=== PATIENT | female | born 1975 | race Caucasian/White ===

== ENCOUNTER → 2017-03-07 | Outpatient (CLI) | payer MEDICAID ==
--- NOTE | 2017-03-11 10:48 | MM ---
Reason for exam: screening (asymptomatic). Last mammogram was performed 1 year and 7 months ago. Physical Findings: A clinical breast exam by your physician is recommended on an annual basis and results should be correlated with mammographic findings. MG 3D Screening Mammo W/Cad Bilateral CC and MLO view(s) were taken. Prior study comparison: August 19, 2015, bilateral MG screening mammo w CAD. October 18, 2009, bilateral digital screening mammogram. There are scattered fibroglandular densities. There is no discrete abnormality. ASSESSMENT: Negative, BI-RAD 1 RECOMMENDATION: Routine screening mammogram of both breasts in 1 year.
== END ==
LOC: RADMAMWWP 07:34
PROVIDERS: ATTEND Family Medicine
DX: Z12.31 Encounter for screening mammogram for malignant neoplasm of breast (principal)
CPT/HCPCS: 77063; G0202

== ENCOUNTER → 2018-03-24 | Outpatient (CLI) | payer MEDICAID ==
--- NOTE | 2018-03-24 10:57 | XR ---
EXAMINATION TYPE: XR finger RT DATE OF EXAM: 03/24/2018 COMPARISON: NONE HISTORY: 42 year-old female right index finger injury, reports joint dislocation after gardening last night TECHNIQUE: 3 views coned down right second digit. FINDINGS: There is swan neck deformity of the right index finger. No acute fracture, subluxation, or dislocatio n seen. IMPRESSION: [place]-neck deformity right index finger could be on a posttraumatic basis. Clinically correlation. No acute fracture or dislocation seen.
== END | disposition home or self-care (01) ==
LOC: RADXRYALE 08:40
PROVIDERS: ATTEND Physician Assistant Medical
DX: M20.031 Swan-neck deformity of right finger(s) (principal)

== ENCOUNTER 2019-08-17 08:55 | Emergency (ER) | payer MEDICAID ==
[2019-08-17 09:11] VITALS: RESP 18
[2019-08-17] MEDS ORDERED: KETOROLAC 30 MG/ML 1 ML VIAL IVP STA (09:23)
[2019-08-17] MEDS ORDERED: SODIUM CHLORIDE 0.9% 1,000 ML IV STA ×2 (09:23)
[2019-08-17] MEDS ORDERED: ONDANSETRON ODT 8 MG TAB.RAPDIS PO STA (09:23)
--- NOTE | 2019-08-17 09:25 | ED ---
Abdominal Pain HPI - General Chief Complaint: Abdominal Pain Stated Complaint: Abd.pain/diarrhea/headache Time Seen by Provider: 08/17/19 09:12 Source: patient, RN notes reviewed, old records reviewed Mode of arrival: ambulatory Limitations: no limitations - History of Present Illness Initial Comments: Patient is a 44-year-old female, she presents emergency department today with 2 days of diarrhea, complaining of nausea and she reports she's been having cramping abdominal pain worse on the right lower quadrant. Patient states that she's had associated fevers but does report chills. Denies a significant past medical history. - Related Data Previous Rx's Medication Instructions Recorded Dicyclomine [Bentyl] 10 mg PO TID #10 capsule 08/17/19 Nitrofurantoin Monohyd/M-Cryst 100 mg PO Q12HR #14 cap 08/17/19 [Macrobid] Ondansetron [Zofran ODT] 4 mg PO Q8HR #15 tab 08/17/19 Allergies Allergy/AdvReac Type Severity Reaction Status Date / Time No Known Allergies Allergy Verified 08/17/19 09:14 Review of Systems ROS Statement: Those systems with pertinent positive or pertinent negative responses have been documented in the HPI. ROS Other: All systems not noted in ROS Statement are negative. Past Medical History Past Medical History: No Reported History History of Any Multi-Drug Resistant Organisms: None Reported Past Surgical History: No Surgical Hx Reported Past Psychological History: No Psychological Hx Reported Smoking Status: Current every day smoker Past Alcohol Use History: Occasional Past Drug Use History: None Reported General Exam - General Exam Comments Initial Comments: 44 year old female. Limitations: no limitations General appearance: alert, in no apparent distress Head exam: Present: atraumatic, normocephalic, normal inspection Eye exam: Present: normal appearance, PERRL, EOMI. Absent: scleral icterus, conjunctival injection, periorbital swelling ENT exam: Present: normal exam, mucous membranes moist Neck exam: Present: normal inspection. Absent: tenderness, meningismus, lymphadenopathy Respiratory exam: Present: normal lung sounds bilaterally. Absent: respiratory distress, wheezes, rales, rhonchi, stridor Cardiovascular Exam: Present: regular rate, normal rhythm, normal heart sounds. Absent: systolic murmur, diastolic murmur, rubs, gallop, clicks GI/Abdominal exam: Present: soft, tenderness (Right lower quadrant), normal bowel sounds. Absent: distended, guarding, rebound, rigid Extremities exam: Present: normal inspection, full ROM, normal capillary refill. Absent: tenderness, pedal edema, joint swelling, calf tenderness Back exam: Present: normal inspection Neurological exam: Present: alert, oriented X3, CN II-XII intact Psychiatric exam: Present: normal affect, normal mood Skin exam: Present: warm, dry, intact, normal color. Absent: rash Course Vital Signs 08/17/19 08/17/19 09:08 09:20 Temperature 97.6 F 97.9 F Pulse Rate 101 H Respiratory 18 Rate Blood Pressure 131/88 O2 Sat by Pulse 98 Oximetry Medical Decision Making - Medical Decision Making Patient is a 44-year-old female presents emergency department today with nausea and diarrhea. Patient has had symptoms for the past 2 days. She went to some abdominal cramping sensation. She has some mild right lower quadrant tenderness. Laboratory was reviewed. White blood cell, 6.3. We will not 13.9. Coag levels are normal. Chemistry panels are relatively unremarkable. Urinalysis is positive for infection with 34 white blood cells. Moderate bacteria is noted and some blood. Discussed putting the Patient on antibiotics for this. Patient was reevaluated and is nontender states she's feeling better after fluids and Toradol. I discussed that she can follow-up with her primary care doctor. Discussed return parameters that the pain persists in one location she has any fevers. - Lab Data Result diagrams: 08/17/19 09:30 08/17/19 09:30 Lab Results 08/17/19 08/17/19 08/17/19 Range/Units 09:30 09:30 09:30 WBC 6.3 (3.8-10.6) k/uL RBC 4.43 (3.80-5.40) m/uL Hgb 13.9 (11.4-16.0) gm/dL Hct 39.2 (34.0-46.0) % MCV 88.3 (80.0-100.0) fL MCH 31.4 (25.0-35.0) pg MCHC 35.5 (31.0-37.0) g/dL RDW 13.1 (11.5-15.5) % Plt Count 238 (150-450) k/uL Neutrophils % 62 % Lymphocytes % 26 % Monocytes % 6 % Eosinophils % 3 % Basophils % 1 % Neutrophils # 3.9 (1.3-7.7) k/uL Lymphocytes # 1.6 (1.0-4.8) k/uL Monocytes # 0.4 (0-1.0) k/uL Eosinophils # 0.2 (0-0.7) k/uL Basophils # 0.1 (0-0.2) k/uL PT 9.6 (9.0-12.0) sec INR 0.9 (<1.2) APTT 24.7 (22.0-30.0) sec Sodium 140 (137-145) mmol/L Potassium 3.9 (3.5-5.1) mmol/L Chloride 111 H (98-107) mmol/L Carbon Dioxide 21 L (22-30) mmol/L Anion Gap 8 mmol/L BUN 10 (7-17) mg/dL Creatinine 0.60 (0.52-1.04) mg/dL Est GFR (CKD-EPI)AfAm >90 (>60 ml/min/1.73 sqM) Est GFR (CKD-EPI)NonAf >90 (>60 ml/min/1.73 sqM) Glucose 104 H (74-99) mg/dL Calcium 8.8 (8.4-10.2) mg/dL Total Bilirubin 0.3 (0.2-1.3) mg/dL AST 20 (14-36) U/L ALT 26 (9-52) U/L Alkaline Phosphatase 73 (38-126) U/L Total Protein 6.7 (6.3-8.2) g/dL Albumin 3.7 (3.5-5.0) g/dL Amylase 49 (30-110) U/L Lipase 105 (23-300) U/L Urine Color Urine Appearance (Clear) Urine pH (5.0-8.0) Ur Specific [place] (1.001-1.035) Urine Protein (Negative) Urine Glucose (UA) (Negative) Urine Ketones (Negative) Urine Blood (Negative) Urine Nitrite (Negative) Urine Bilirubin (Negative) Urine Urobilinogen (<2.0) mg/dL Ur Leukocyte Esterase (Negative) Urine RBC (0-5) /hpf Urine WBC (0-5) /hpf Urine WBC Clumps (None) /hpf Ur Squamous Epith Cells (0-4) /hpf Urine Bacteria (None) /hpf Urine Mucus (None) /hpf 08/17/19 Range/Units 09:30 WBC (3.8-10.6) k/uL RBC (3.80-5.40) m/uL Hgb (11.4-16.0) gm/dL Hct (34.0-46.0) % MCV (80.0-100.0) fL MCH (25.0-35.0) pg MCHC (31.0-37.0) g/dL RDW (11.5-15.5) % Plt Count (150-450) k/uL Neutrophils % % Lymphocytes % % Monocytes % % Eosinophils % % Basophils % % Neutrophils # (1.3-7.7) k/uL Lymphocytes # (1.0-4.8) k/uL Monocytes # (0-1.0) k/uL Eosinophils # (0-0.7) k/uL Basophils # (0-0.2) k/uL PT (9.0-12.0) sec INR (<1.2) APTT (22.0-30.0) sec Sodium (137-145) mmol/L Potassium (3.5-5.1) mmol/L Chloride (98-107) mmol/L Carbon Dioxide (22-30) mmol/L Anion Gap mmol/L BUN (7-17) mg/dL Creatinine (0.52-1.04) mg/dL Est GFR (CKD-EPI)AfAm (>60 ml/min/1.73 sqM) Est GFR (CKD-EPI)NonAf (>60 ml/min/1.73 sqM) Glucose (74-99) mg/dL Calcium (8.4-10.2) mg/dL Total Bilirubin (0.2-1.3) mg/dL AST (14-36) U/L ALT (9-52) U/L Alkaline Phosphatase (38-126) U/L Total Protein (6.3-8.2) g/dL Albumin (3.5-5.0) g/dL Amylase (30-110) U/L Lipase (23-300) U/L Urine Color Yellow Urine Appearance Turbid H (Clear) Urine pH 5.5 (5.0-8.0) Ur Specific [place] 1.030 (1.001-1.035) Urine Protein 1+ H (Negative) Urine Glucose (UA) Negative (Negative) Urine Ketones Negative (Negative) Urine Blood Small H (Negative) Urine Nitrite Negative (Negative) Urine Bilirubin Negative (Negative) Urine Urobilinogen <2.0 (<2.0) mg/dL Ur Leukocyte Esterase Large H (Negative) Urine RBC 7 H (0-5) /hpf Urine WBC 24 H (0-5) /hpf Urine WBC Clumps Few H (None) /hpf Ur Squamous Epith Cells 45 H (0-4) /hpf Urine Bacteria Moderate H (None) /hpf Urine Mucus Moderate H (None) /hpf - Radiology Data Radiology results: report reviewed Normal abdominal x-ray. Disposition Clinical Impression: Diarrhea, UTI (urinary tract infection) Disposition: HOME SELF-CARE Condition: Good Instructions (If sedation given, give patient instructions): Gastroenteritis (ED), Urinary Tract Infection in Women (DC) Additional Instructions: Please use medication as discussed. Please follow up with family doctor if symptoms have not improved over the next two days. Please return to the em ergency room if your symptoms increase or worsen or for any other concerns. Prescriptions: Dicyclomine [Bentyl] 10 mg PO TID #10 capsule Nitrofurantoin Monohyd/M-Cryst [Macrobid] 100 mg PO Q12HR #14 cap Ondansetron [Zofran ODT] 4 mg PO Q8HR #15 tab Is patient prescribed a controlled substance at d/c from ED?: No Referrals: Tung Gillsi DO [Primary Care Provider] - 1-2 days Time of Disposition: 10:37
[2019-08-17] MEDS ORDERED: ONDANSETRON 4 MG/2 ML VIAL IVP STA (09:26)
[2019-08-17 09:44] LABS: Basophils # (A) 0.1 k/uL (0-0.2); Basophils % (A) 1 %; Eosinophils # (A) 0.2 k/uL (0-0.7); Eosinophils % (A) 3 %; HCT 39.2 % (34.0-46.0); HGB 13.9 gm/dL (11.4-16.0); Lymphocytes # (A) 1.6 k/uL (1.0-4.8); Lymphocytes % (A) 26 %; MCH 31.4 pg (25.0-35.0); MCHC 35.5 g/dL (31.0-37.0); MCV 88.3 fL (80.0-100.0); Mean Platelet Volume 7.8; Monocytes # (A) 0.4 k/uL (0-1.0); Monocytes % (A) 6 %; Neutrophils # (A) 3.9 k/uL (1.3-7.7); Neutrophils % (A) 62 %; Platelet Count 238 k/uL (150-450); RBC 4.43 m/uL (3.80-5.40); RDW 13.1 % (11.5-15.5); WBC 6.3 k/uL (3.8-10.6)
[2019-08-17 09:53] LABS: Appearance,Urine Turbid (Clear); Bacteria,Urine Moderate /hpf; Bilirubin,Urine Negative (Negative); Blood,Urine Small (Negative); Color,Urine Yellow; Glucose,Urine (UA) Negative (Negative); Ketones,Urine Negative (Negative); Leukocyte Esterase,Urine Large (Negative); Mucus,Urine Moderate /hpf; Nitrite,Urine Negative (Negative); PH, Urine 5.5 (5.0-8.0); Protein,Urine 1+ (Negative); RBC,Urine 7 /hpf (0-5); Squamous Epithelial Cell,Urine 45 /hpf (0-4); Urobilinogen,Urine <2.0 mg/dL (<2.0); WBC,Urine 24 /hpf (0-5)
[2019-08-17 09:54] LABS: INR 0.9 (<1.2); Partial Thromboplastin Time 24.7 sec (22.0-30.0); Prothrombin Time 9.6 sec (9.0-12.0)
[2019-08-17 09:55] LABS: ALT 26 U/L (9-52); AST 20 U/L (14-36); African American GFR (CKD) >90 (>60 ml/min/1.73 sqM); Albumin 3.7 g/dL (3.5-5.0); Alkaline Phosphatase 73 U/L (38-126); Amylase 49 U/L (30-110); Anion Gap 8 mmol/L; Blood Urea Nitrogen 10 mg/dL (7-17); Calcium 8.8 mg/dL (8.4-10.2); Carbon Dioxide 21 mmol/L (22-30); Chloride 111 mmol/L (98-107); Glucose 104 mg/dL (74-99); Potassium 3.9 mmol/L (3.5-5.1); Sodium 140 mmol/L (137-145); Total Bilirubin 0.3 mg/dL (0.2-1.3); Total Protein 6.7 g/dL (6.3-8.2)
--- NOTE | 2019-08-17 10:02 | XR ---
EXAMINATION TYPE: XR KUB DATE OF EXAM: 08/17/2019 COMPARISON: None HISTORY: Abdomen pain TECHNIQUE: Upright abdomen FINDINGS: Normal bowel gas is present. Psoas margins are normal. No free air is evident. No suspiciou s differential air-fluid levels are present. No mass effect is evident. IMPRESSION: 1. Normal abdomen
[2019-08-17 10:50] VITALS: BP 133/95; PULSE 70; TEMP 98.2
== END 2019-08-17 10:48 | disposition home or self-care (01) ==
LOC: EC 08:55
DX: N39.0 Urinary tract infection, site not specified (principal); R19.7 Diarrhea, unspecified; F17.200 Nicotine dependence, unspecified, uncomplicated; Z53.9 Procedure and treatment not carried out, unspecified reason
CPT/HCPCS: 99284; 96374; 96375; 96361; 36415; 80053; 82150; 83690; 85025; 85610; 85730; 81001; 74018; J1885

== ENCOUNTER → 2019-09-17 | Outpatient (CLI) | payer MEDICAID ==
--- NOTE | 2019-09-17 15:24 | CT ---
EXAMINATION TYPE: CT abdomen pelvis w con DATE OF EXAM: 09/17/2019 COMPARISON: None INDICATION: Generalized abdominal pain and diarrhea DLP: 1952.7 mGycm, Automated exposure control for dose reduction was used. CONTRAST: 100 mL of Isovue 300. Study performed with Oral Contrast TECHNIQUE: Axial images were obtained from above the diaphragm to the pubic rami in the axial plane a t 5 mm thick sections. Reconstructed images are reviewed on the computer in the coronal plane. FINDINGS: Limited CT sections are obtained the lung bases. The lung bases are clear. CT ABDOMEN: Liver: Normal Spleen: Normal Pancreas: Normal Adrenal glands: The adrenal glands are normal. Gallbladder: Normal Kidneys: No masses are evident. No hydronephrosis is present. No cysts are present. Delayed images were obtained through the kidneys, which remain unremarkable. Aorta: Normal Inferior vena cava: Normal. CT PELVIS: Loops of bowel within the abdomen and pelvis are normal. There are loops of bowel which are incom pletely distended or lack oral contrast limiting their evaluation. Appendix: Normal as visualized. Urinary bladder: Normal. Genitourinary structures: Uterus and adnexa are unremarkable. Osseous structures: No suspicious lytic or sclerotic lesions. IMPRESSIONS: 1. No suspicious acute changes to account for patient's symptoms.
== END | disposition home or self-care (01) ==
LOC: RADCTMAIN 07:57
PROVIDERS: ATTEND Family Medicine
DX: R10.30 Lower abdominal pain, unspecified (principal); R19.7 Diarrhea, unspecified; R11.0 Nausea
CPT/HCPCS: 74177; Q9967

== ENCOUNTER → 2020-09-12 | Outpatient (CLI) | payer MEDICAID ==
[2020-09-12 10:09] VITALS: BP 129/85; PULSE 65; RESP 18; TEMP 98.1
--- NOTE | 2020-09-12 10:50 | P.HPOB ---
History of Present Illness H&P Date: 09/12/20 Chief Complaint: The patient is here for her routine gynecologic exam and ma mmogram. This is a 45-year-old with an LMP of approximately 2009. The patient is here to establish with this office. It has been about 3 years since her last pelvic exam. She has been amenorrheic since her endometrial ablation done in approximately 2009. She has occasional night sweats, but otherwise denies any significant hot flashes. She is without gynecologic complaints. Review of Systems The patient's weight has been stable over the last year. She has been trying to lose weight without success. She states she is not a very good uterine and does not exercise regularly. She denies respiratory, cardiac, or G.I. problems. Past Medical History Past Medical History: No Reported History Additional Past Medical History / Comment(s): Overweight. 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 Cryotherapy of cervix age 21. History of Any Multi-Drug Resistant Organisms: None Reported Past Surgical History: Tonsillectomy, Uterine Ablation Additional Past Surgical History / Comment(s): Endometrial ablation ankur roximately 2009. Cryotherapy of cervix age 21. VTP. Past Psychological History: No Psychological Hx Reported Smoking Status: Current every day smoker (Half pack per day) Past Alcohol Use History: Occasional Additional Past Alcohol Use History / Comment(s): She started smoking at approximately age 17. 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 - Past Family History Father Family Medical History: Diabetes Mellitus, Myocardial Infarction ([place]) Mother Family Medical History: Hypertension Medications and Allergies Home Medications Medication Instructions Recorded Confirmed Type No Known Home Medications 09/12/20 09/12/20 History Allergies Allergy/AdvReac Type Severity Reaction Status Date / Time No Known Allergies Allergy Verified 09/12/20 10:06 Exam Vital Signs Temp Pulse Resp BP Pulse Ox 09/12/20 10:07 98.1 F 65 18 129/85 98 Intake and Output 09/11/20 09/12/20 09/12/20 22:59 06:59 14:59 Other: Weight 120.656 kg Height 5 feet 5 inches, weight 266 pounds, BMI 44.3. Pulse 114. This is a well-developed well-nourished heavyset white female who is alert and oriented times 3 in no acute distress. HEENT: Within normal limits. NECK: Supple without mass or thyromegaly. CHEST AND LUNGS: Clear to auscultation. HEART: Mild tachycardia with sinus rhythm. BREASTS: Are without mass or discharge. AXILLARY EXAM: Negative for adenopathy. BACK: Negative for CVA tenderness. ABDOMEN: Soft, nontender, without palpable masses. PELVIC EXAM: Normal external genitalia. Cervix and vagina appear normal. There is no unusual discharge. There is no evidence of prolapse. The uterus is midposition, nongravid size and nontender. There are no palpable adnexal masses or tenderness. Bimanual examination is somewhat limited secondary to her size. RECTAL EXAM: negative for mass or tenderness and is negative for occult blood. EXTREMITIES: Nontender. IMPRESSION: 1. 45-year-old female who is amenorrheic since her endometrial ablation in 2009 whose is status post vasectomy, with normal gynecologic exam. 2. Probable premenopausal female. 3. Overweight. PLAN: 1. Pap smear was performed. 2. Self breast awareness was discussed with the patient. 3. Screening mammogram will be done today. 4. Osteoporosis prevention was discussed. I have stressed the importance of adequate calcium, vitamin D and regular exercise. Recommended amounts of calcium and vitamin D were also discussed. 5. I have recommended that she work on trying to quit smoking. We have discussed many reasons why this is important as well as ways of doing this. 6. We have discussed weight control. I have stressed the importance of good nutrition, adequate fiber, not skipping meals, and regular exercise. 7. She was advised to return in one year for her annual well woman exam.
--- NOTE | 2020-09-13 11:56 | MM ---
Reason for exam: screening (asymptomatic). Last mammogram was performed 3 years and 6 months ago. Physical Findings: A clinical breast exam by your physician is recommended on an annual basis and results should be correlated with mammographic findings. MG 3D Screening Mammo W/Cad Bilateral CC and MLO view(s) were taken. Prior study comparison: March 07, 2017, bilateral MG 3d screening mammo w/cad. August 19, 2015, bilateral MG screening mammo w CAD. There are scattered fibroglandular densities. There is no discrete abnormality. ASSESSMENT: Negative, BI-RAD 1 RECOMMENDATION: Routine screening mammogram of both breasts in 1 year.
== END | disposition home or self-care (01) ==
LOC: WWCWWP 09:54
PROVIDERS: ATTEND Obstetrics & Gynecology
DX: Z12.31 Encounter for screening mammogram for malignant neoplasm of breast (principal)
CPT/HCPCS: 77063; 77067

== ENCOUNTER → 2021-08-27 | Outpatient (CLI) | payer MEDICAID, OTHER | END | disposition home or self-care (01) | LOC: LABWHC1 12:18 | PROVIDERS: ATTEND Emergency Medicine | DX: Z20.822 Contact with and (suspected) exposure to COVID-19 (principal) | CPT/HCPCS: 87635 ==

== ENCOUNTER 2021-10-26 08:06 | Day surgery (SDC) | payer MEDICAID ==
[2021-10-24 15:31] VITALS: BMI 41.5
[~2021-10-26 08:06] MED LIST: LACTATED RINGERS 1,000 ML IV SCH
[2021-10-26 08:42] VITALS: TEMP 97.3
[2021-10-26] MEDS ORDERED: LIDOCAINE 1% (10MG/ML) FOR IV START INTRADERMA ONE (08:56)
[2021-10-26] MEDS ORDERED: LIDOCAINE 1% INJ 10MG/ML (20 ML MDV) ONE (09:23)
[2021-10-26] MEDS ORDERED: PROPOFOL 10 MG/ML 20 ML VIAL IV ONE (09:23)
--- NOTE | 2021-10-26 09:43 | P.PCN ---
Date of Procedure: 10/26/21 Procedure(s) Performed: BRIEF HISTORY: Patient is a 46-year-old pleasant female scheduled for an elective colonoscopy as a part of evaluation of lower abdominal pain and intermittent diarrhea for the last several months duration. PROCEDURE PERFORMED: Colonoscopy with snare polypectomy. PREOPERATIVE DIAGNOSIS: Lower abdominal pain and change in bowel habits of several months duration IV sedation per Anesthesia. PROCEDURE: After informed consent was obtained, the patient, was brought into the endoscopy unit. IV sedation was administered by Anesthesia under continuous monitoring. Digital rectal examination was normal. Initially the Olympus CF-160 flexible video colonoscope was then inserted in the rectum, gradually advanced into the cecum without any difficulty. Careful examination was performed as the scope was gradually being withdrawn. Ileocecal valve and the appendiceal orifice were visualized and appeared normal. Prep was excellent. Mucosa of the cecum, ascending colon, transverse colon, there normal. The descending colon there was a 5 mm and 7 mm polyps removed by snare polypectomy. The sigmoid colon there was a 3 mm and 5 mm polyp removed by snare polypectomy. Rest of the descending colon, sigmoid colon, and rectum appeared normal. Retroflexion was performed in the rectum and small internal hemorrhoids were seen. The patient tolerated the procedure well. IMPRESSION: 5 mm and 7 mm descending colon polyp status post polypectomy 3 mm and 5 mm; sigmoid polyp status post polypectomy Small internal hemorrhoids RECOMMENDATIONS: Findings of this examination were discussed with the patient as well as a family. She was advised to follow with the biopsy results. If the biopsy reveals adenoma she can have a repeat colonoscopy in 5 years.. In the meantime she was advised to continue with dicyclomine as needed and continue with a high-fiber diet.
[2021-10-26 10:08] VITALS: BP 119/78; PULSE 70; RESP 16
[2021-10-26] MEDS ORDERED: IV FLUID CONTINUATION 1,000 ML IV ONE (10:20)
== END 2021-10-26 10:21 | disposition home or self-care (01) ==
LOC: ORWHC2ENDO 08:06
PROVIDERS: ATTEND Internal Medicine Gastroenterology
DX: D12.4 Benign neoplasm of descending colon (principal); K63.5 Polyp of colon; K64.8 Other hemorrhoids; F17.210 Nicotine dependence, cigarettes, uncomplicated; Z79.899 Other long term (current) drug therapy
CPT/HCPCS: 81025; 88305; 45385; J2001; J2704

== ENCOUNTER → 2021-11-13 | Outpatient (CLI) | payer MEDICAID ==
[2021-11-13 09:14] VITALS: BP 121/83; PULSE 85; RESP 18; TEMP 97.9
--- NOTE | 2021-11-13 09:37 | P.HPOB ---
History of Present Illness H&P Date: 11/13/21 Chief Complaint: The patient is here for her routine gynecologic exam and ma mmogram. This is a 46-year-old 012 with an LMP of approximately 2009. The patient has been amenorrheic since her endometrial ablation which was done in approximately 2009. She denies any vaginal bleeding. Her is status post vasectomy. She has had occasional night sweats but denies any significant hot flashes during the day. She is without gynecologic complaints. Review of Systems The patient has lost 2 pounds over the last year. She denies respiratory, cardiac, or G.I. problems. Past Medical History Past Medical History: No Reported History Additional Past Medical History / Comment(s): BOUT'S OF SEVERE DIARRHEA AND ABD. PAIN FOR PAST SEVERAL YEARS. 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 Cryotherapy of the cervix at age 21. History of Any Multi-Drug Resistant Organisms: None Reported Past Surgical History: Tonsillectomy, Uterine Ablation Additional Past Surgical History / Comment(s): Endometrial ablation approximately 2009. Cryotherapy of cervix age 21. VTP. 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 - Past Family History Father Family Medical History: Diabetes Mellitus, Myocardial Infarction ([place]) Mother Family Medical History: Hypertension Medications and Allergies Home Medications Medication Instructions Recorded Confirmed Type Dicyclomine [Bentyl] 20 mg PO QID PRN 11/13/21 11/13/21 History Rosuvastatin [Crestor] 10 mg PO HS 11/13/21 11/13/21 History Allergies Allergy/AdvReac Type Severity Reaction Status Date / Time No Known Allergies Allergy Verified 11/13/21 09:07 Exam Vital Signs Temp Pulse Resp BP Pulse Ox 11/13/21 09:08 97.9 F 85 18 121/83 97 Intake and Output 11/12/21 11/13/21 11/13/21 22:59 06:59 14:59 Other: Weight 119.748 kg Height 5 feet 4-1/2 inches, weight 264 pounds, BMI 44.6. This is a well-developed well-nourished heavyset white female who is alert and oriented times 3 in no acute distress. HEENT: Within normal limits. NECK: Supple without mass or thyromegaly. CHEST AND LUNGS: Clear to auscultation. HEART: Regular rate and rhythm. BREASTS: Are without mass or discharge. AXILLARY EXAM: Negative for adenopathy. BACK: Negative for CVA tenderness. ABDOMEN: Soft, obese, nontender, without palpable masses. PELVIC EXAM: Normal external genitalia. Cervix and vagina appear normal. There is no unusual discharge. There is no evidence of prolapse. The uterus is midposition, nongravid size and nontender. There are no palpable adnexal masses or tenderness. RECTAL EXAM: negative for mass or tenderness and is negative for occult blood. EXTREMITIES: Nontender. IMPRESSION: 1. 46-year-old probable premenopausal female with amenorrhea secondary to endometrial ablation in 2009, with normal gynecologic exam. 2. Overweight. PLAN: 1. Pap smear was deferred since she had a normal one on 09/12/2020. 2. Self breast awareness was discussed with the patient. We have also discussed symptoms associated with inflammatory breast cancer. 3. Screening mammogram will be done today. 4. Osteoporosis prevention was discussed. I have stressed the importance of adequate calcium, vitamin D and regular exercise. Recommended amounts of calcium and vitamin D were also discussed. 5. She has completed her Covid vaccination series and has received a booster. 6. She was advised to return in one year for her annual well woman exam.
== END ==
LOC: WWCWWP 09:00
PROVIDERS: ATTEND Obstetrics & Gynecology
DX: Z12.31 Encounter for screening mammogram for malignant neoplasm of breast (principal); N91.2 Amenorrhea, unspecified; E66.3 Overweight; F17.210 Nicotine dependence, cigarettes, uncomplicated; Z98.890 Other specified postprocedural states; Z68.41 Body mass index [BMI] 40.0-44.9, adult
CPT/HCPCS: 77063; 77067

== ENCOUNTER 2023-12-16 06:10 | Observation (INO) | payer MEDICAID ==
--- NOTE | 2023-12-16 06:37 | ED ---
General Adult HPI - General Stated complaint: Chest pain Time Seen by Provider: 12/16/23 06:36 Source: patient, RN notes reviewed Mode of arrival: ambulatory Limitations: no limitations - History of Present Illness Initial comments: 48-year-old female presents emergency department chief complaint of chest pain. Patient states started yesterday some pain in her back, shoulder region states it is now more anterior she does admit that it hurts with movement but is concerning as she has a significant family cardiac history. Patient states that her brother this year with cardiac issues along with her father at a young age. Patient dates she does have hyperlipidemia no history of hypertension denies any history of diabetes. She denies any leg swelling, leg pain or history of DVT or PE. - Related Data Home Medications Medication Instructions Recorded Confirmed Dicyclomine [Bentyl] 20 mg PO QID PRN 11/13/21 01/15/23 Rosuvastatin [Crestor] 10 mg PO HS 11/13/21 01/15/23 Allergies Allergy/AdvReac Type Severity Reaction Status Date / Time No Known Allergies Allergy Verified 12/16/23 06:45 Review of Systems ROS Statement: Those systems with pertinent positive or pertinent negative responses have been documented in the HPI. ROS Other: All systems not noted in ROS Statement are negative. 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 Cryotherapy of the cervix at age 21. History of Any Multi-Drug Resistant Organisms: None Reported Past Surgical History: Tonsillectomy, Uterine Ablation Additional Past Surgical History / Comment(s): Endometrial ablation approxima tely 2009. Cryotherapy of cervix age 21. VTP. Past Anesthesia/Blood Transfusion Reactions: No Reported Reaction Past Psychological History: No Psychological Hx Reported Smoking Status: Current every day smoker (Half a pack per day) Past Alcohol Use History: Occasional (5 per week) Additional Past Alcohol Use History / Comment(s): She started smoking at approximately age 17.-SMOKES ABOUT 1/2 PPD Past Drug Use History: None Reported - Past Family History Father Family Medical History: Diabetes Mellitus, Myocardial Infarction ([place]) Mother Family Medical History: Hypertension General Exam Limitations: no limitations General appearance: alert, in no apparent distress Head exam: Present: atraumatic, normocephalic, normal inspection Eye exam: Present: normal appearance, PERRL, EOMI. Absent: scleral icterus, conjunctival injection, periorbital swelling ENT exam: Present: normal exam, normal oropharynx, mucous membranes moist Neck exam: Present: normal inspection, full ROM. Absent: tenderness, meningismus, lymphadenopathy Respiratory exam: Present: normal lung sounds bilaterally. Absent: respiratory distress, wheezes, rales, rhonchi, stridor Cardiovascular Exam: Present: regular rate, normal rhythm, normal heart sounds. Absent: systolic murmur, diastolic murmur, rubs, gallop, clicks GI/Abdominal exam: Present: soft, normal bowel sounds. Absent: distended, tenderness, guarding, rebound, rigid Course Vital Signs 12/16/23 12/16/23 06:45 09:28 Temperature 98.3 F Pulse Rate 79 75 Respiratory 17 18 Rate Blood Pressure 154/106 166/110 O2 Sat by Pulse 98 98 Oximetry EKG Findings - EKG Comments: EKG Findings:: EKG performed at 6: 52 sinus rhythm rate of 84 [place] 162 QRS 77 QT/ QTc 381/422 - EKG Results: EKG: interpreted by TERRI Medical Decision Making - Medical Decision Making Was pt. sent in by a medical professional or institution (, PA, COMMUNITY PLACEMENT WORKER, urgent care, hospital, or fpc...) When possible be specific @ -No Did you speak to anyone other than the patient for history (EMS, parent, family, police, friend...)? What history was obtained from this source @ -No Did you review nursing and triage notes (agree or disagree)? Why? @ -I reviewed and agree with nursing and triage notes Were old charts reviewed (outside hosp., previous admission, EMS record, old EKG, old radiological studies, urgent care reports/EKG's, fpc records)? Report findings @ -No old charts were reviewed Differential Diagnosis (chest pain, altered mental status, abdominal pain women, abdominal pain men, vaginal bleeding, weakness, fever, dyspnea, syncope, headache, dizziness, GI bleed, back pain, seizure, CVA, palpatations, mental health, musculoskeletal)? @ -[Differential Chest Pain: Stable Angina, Unstable Angina, STEMI, NSTEMI Aortic Dissection, Pneumothorax, Musculoskeletal, Esophageal Spasm GERD, Cholecystitis, Pancreatitis, Zoster, this is not meant to be an all-inclusive list. EKG interpreted by me (3pts min.). @ -As above X-rays interpreted by me (1pt min.). @ -None done CT interpreted by me (1pt min.). @ -[CT angio chest showing no evidence of PE there are multiple nodules there is abnormal lytic lesion in the rib noted U/S interpreted by me (1pt. min.). @ -None done What testing was considered but not performed or refused? (CT, X-rays, U/S, labs)? Why? @ -[Ordered x-ray of this was not completed prior to requiring CT x-ray was canceled What meds were considered but not given or refused? Why? @ -None Did you discuss the management of the patient with other professionals (professionals i.e. , PA, COMMUNITY PLACEMENT WORKER, lab, RT, psych nurse, social sciences research scientist, clay pigeon loader, teacher, vessel traffic officer, case folder)? Give summary @ -[Yuniel with sound physicians for admission secondary to cardiac risk, cardiac rule out Was smoking cessation discussed for >3mins.? @ -No Was critical care preformed (if so, how long)? @ -No Were there social determinants of health that impacted care today? How? (Homelessness, low income, unemployed, alcoholism, drug addiction, transportation, low edu. Level, literacy, decrease access to med. care, [facility], rehab)? @ -No Was there de-escalation of care discussed even if they declined (Discuss DNR or withdrawal of care, Hospice)? DNR status @ -No What co-morbidities impacted this encounter? (DM, HTN, Smoking, COPD, CAD, Cancer, CVA, ARF, Chemo, Hep., AIDS, mental health diagnosis, sleep apnea, morbid obesity)? @ -[Hyperlipidemia, cardiac family history Was patient admitted / discharged? Hospital course, mention meds given and route, prescriptions, significant lab abnormalities, going to OR and other pertinent info. @ -Admitted patient has significant history of family heart disease, does have risk factors she had a negative troponin, CT of the chest shows multiple nodules and possible lytic lesion Undiagnosed new problem with uncertain prognosis? @ -[Yes Drug Therapy requiring intensive monitoring for toxicity (Heparin, Nitro, Insulin, Cardizem)? @ -[No Were any procedures done? @ -No Diagnosis/symptom? @ -[Chest pain, lung nodules, rib lesion Acute, or Chronic, or Acute on Chronic? @ -Acute Uncomplicated (without systemic symptoms) or Complicated (systemic symptoms)? @ -complicated Side effects of treatment? @ -[No Exacerbation, Progression, or Severe Exacerbation? @ -No Poses a threat to life or bodily function? How? (Chest pain, USA, NM, pneumonia, PE, COPD, DKA, ARF, appy, cholecystitis, CVA, Diverticulitis, Homicidal, S uicidal, threat to staff... and all critical care pts) @ -[Yes possible ACS - Lab Data Result diagrams: 12/16/23 06:52 12/16/23 06:52 Lab Results 12/16/23 12/16/23 12/16/23 Range/Units 06:52 06:52 06:52 WBC 6.6 (3.8-10.6) k/uL RBC 4.35 (3.80-5.40) m/uL Hgb 13.8 (11.4-16.0) gm/dL Hct 39.3 (34.0-46.0) % MCV 90.3 (80.0-100.0) fL MCH 31.6 (25.0-35.0) pg MCHC 35.0 (31.0-37.0) g/dL RDW 13.0 (11.5-15.5) % Plt Count 231 (150-450) k/uL MPV 7.6 Neutrophils % 56 % Lymphocytes % 34 % Monocytes % 5 % Eosinophils % 3 % Basophils % 0 % Neutrophils # 3.7 (1.3-7.7) k/uL Lymphocytes # 2.2 (1.0-4.8) k/uL Monocytes # 0.3 (0-1.0) k/uL Eosinophils # 0.2 (0-0.7) k/uL Basophils # 0.0 (0-0.2) k/uL PT 9.8 L (10.0-12.5) sec INR 0.9 (<1.2) APTT 23.9 (22.0-30.0) sec D-Dimer 0.64 H (<0.60) mg/L FEU Sodium 138 (137-145) mmol/L Potassium 4.9 (3.5-5.1) mmol/L Chloride 112 H (98-107) mmol/L Carbon Dioxide 19 L (22-30) mmol/L Anion Gap 7 mmol/L BUN 16 (7-17) mg/dL Creatinine 0.46 L (0.52-1.04) mg/dL Est GFR (CKD-EPI)AfAm >90 (>60 ml/min/1.73 sqM) Est GFR (CKD-EPI)NonAf >90 (>60 ml/min/1.73 sqM) Glucose 123 H (74-99) mg/dL Calcium 8.7 (8.4-10.2) mg/dL Magnesium 1.8 (1.6-2.3) mg/dL Total Bilirubin 0.8 (0.2-1.3) mg/dL AST 31 (14-36) U/L ALT 21 (4-34) U/L Alkaline Phosphatase 56 (38-126) U/L Troponin I (0.000-0.034) ng/mL Total Protein 7.2 (6.3-8.2) g/dL Albumin 4.0 (3.5-5.0) g/dL 12/16/23 Range/Units 06:52 WBC (3.8-10.6) k/uL RBC (3.80-5.40) m/uL Hgb (11.4-16.0) gm/dL Hct (34.0-46.0) % MCV (80.0-100.0) fL MCH (25.0-35.0) pg MCHC (31.0-37.0) g/dL RDW (11.5-15.5) % Plt Count (150-450) k/uL MPV Neutrophils % % Lymphocytes % % Monocytes % % Eosinophils % % Basophils % % Neutrophils # (1.3-7.7) k/uL Lymphocytes # (1.0-4.8) k/uL Monocytes # (0-1.0) k/uL Eosinophils # (0-0.7) k/uL Basophils # (0-0.2) k/uL PT (10.0-12.5) sec INR (<1.2) APTT (22.0-30.0) sec D-Dimer (<0.60) mg/L FEU Sodium (137-145) mmol/L Potassium (3.5-5.1) mmol/L Chloride (98-107) mmol/L Carbon Dioxide (22-30) mmol/L Anion Gap mmol/L BUN (7-17) mg/dL Creatinine (0.52-1.04) mg/dL Est GFR (CKD-EPI)AfAm (>60 ml/min/1.73 sqM) Est GFR (CKD-EPI)NonAf (>60 ml/min/1.73 sqM) Glucose (74-99) mg/dL Calcium (8.4-10.2) mg/dL Magnesium (1.6-2.3) mg/dL Total Bilirubin (0.2-1.3) mg/dL AST (14-36) U/L ALT (4-34) U/L Alkaline Phosphatase (38-126) U/L Troponin I <0.012 (0.000-0.034) ng/mL Total Protein (6.3-8.2) g/dL Albumin (3.5-5.0) g/dL Disposition Clinical Impression: Chest pain, Lung nodules, Rib lesion Disposition: ADMITTED IP TO THIS HOSP Referrals: Tung Gillis DO [Primary Care Provider] - 1-2 days Time of Disposition: 09:33
[2023-12-16 07:09] LABS: Basophils % (A) 0 %; Eosinophils # (A) 0.2 k/uL (0-0.7); Eosinophils % (A) 3 %; HCT 39.3 % (34.0-46.0); HGB 13.8 gm/dL (11.4-16.0); Lymphocytes # (A) 2.2 k/uL (1.0-4.8); Lymphocytes % (A) 34 %; MCH 31.6 pg (25.0-35.0); MCV 90.3 fL (80.0-100.0); Mean Platelet Volume 7.6; Monocytes # (A) 0.3 k/uL (0-1.0); Monocytes % (A) 5 %; Neutrophils # (A) 3.7 k/uL (1.3-7.7); Neutrophils % (A) 56 %; Platelet Count 231 k/uL (150-450); RBC 4.35 m/uL (3.80-5.40); WBC 6.6 k/uL (3.8-10.6)
[2023-12-16 07:22] LABS: ALT 21 U/L (4-34); AST 31 U/L (14-36); African American GFR (CKD) >90 (>60 ml/min/1.73 sqM); Alkaline Phosphatase 56 U/L (38-126); Anion Gap 7 mmol/L; Blood Urea Nitrogen 16 mg/dL (7-17); Calcium 8.7 mg/dL (8.4-10.2); Carbon Dioxide 19 mmol/L (22-30); Chloride 112 mmol/L (98-107); Glucose 123 mg/dL (74-99); Magnesium 1.8 mg/dL (1.6-2.3); Non-African American GFR(CKD) >90 (>60 ml/min/1.73 sqM); Sodium 138 mmol/L (137-145); Total Bilirubin 0.8 mg/dL (0.2-1.3); Total Protein 7.2 g/dL (6.3-8.2)
[2023-12-16 07:33] LABS: Potassium 4.9 mmol/L (3.5-5.1)
[2023-12-16 07:42] LABS: INR 0.9 (<1.2); Partial Thromboplastin Time 23.9 sec (22.0-30.0); Prothrombin Time 9.8 sec (10.0-12.5)
--- NOTE | 2023-12-16 08:32 | CT ---
EXAMINATION TYPE: CT chest angio for PE CT DLP: 940.2 mGycm, Automated exposure control for dose reduction was used. DATE OF EXAM: 12/16/2023 8:22 AM COMPARISON: None CLINICAL INDICATION:Female, 48 years old with history of pain; PE TECHNIQUE/CONTRAST: CTA scan of the thorax is performed with IV Contrast, patient injected with 100 mL of Isovue 370, pul monary embolism protocol. MIP images are created and reviewed. FINDINGS: Pulmonary Artery: There is no evidence for a filling defect within the pulmonary vasculature to sugge st acute pulmonary embolism. The pulmonary artery is of normal size. Lungs/Pleura: No evidence of focal consolidation, pleural effusion or pneumothorax. Few subpleural bi lateral scattered pulmonary nodules measuring up to 3 mm. Left lateral apical pleural thickening iden tified (series 401, image 29). Airway: Large airways are patent. Heart: Heart is within normal limits for size.. Vasculature: No evidence of aortic aneurysm. Mediastinum: No gross evidence of adenopathy. Musculoskeletal: No acute osseous abnormalities. Left lateral second rib lytic 1.6 cm lesion (series 406, image 31). Multilevel Schmorl's nodes involving the mid to lower thoracic spine. Soft Tissues: Unremarkable. Lower neck: No significant findings. Upper Abdomen: No significant findings. IMPRESSION: 1. No evidence of pulmonary embolism. 2. Few subpleural bilateral scattered pulmonary nodules measuring up to 3 mm. In a low risk patient, no follow-up is recommended. In a high-risk patient consider optional CT chest in 12 months. 3. Nonspecific left lateral second rib 1.6 cm lytic lesion with adjacent pleural thickening. Etiologi es include fibrous dysplasia, ABC, enchondroma, versus other.
[2023-12-16] MEDS ORDERED: ACETAMINOPHEN TAB 325 MG TAB PO STA (09:28)
[2023-12-16] MEDS ORDERED: KETOROLAC 15 MG/ML 1 ML VIAL IVP STA (09:28)
[2023-12-16] MEDS ORDERED: ASPIRIN 81 MG PO STA (09:29)
[2023-12-16] MEDS ORDERED: NITROGLYCERIN SL TABS 0.4 MG TAB SUBLINGUAL PRN (09:33)
[2023-12-16] MEDS ORDERED: ACETAMINOPHEN TAB 325 MG TAB PO PRN (10:56)
--- NOTE | 2023-12-16 10:57 | P.HPIM ---
History of Present Illness H&P Date: 12/16/23 History of Presenting Illness: Patient is a very pleasant 48-year-old female with a past medical history of nicotine dependence and hyperlipidemia. She presented to the emergency department with a chief complaint of chest pain. Patient reports initially she began experiencing pain in her upper back and left shoulder region yesterday thinking that she may have simply pulled a muscle but reports today pain radiates into her midsternal chest and the back pain has improved but the chest pain is persistent. Patient reports having a significant family history of coronary artery disease and reports her brother at the age of 51 from a heart attack and her father also at a young age. Patient states she was previously prescribed rosuvastatin for her cholesterol but has never taken. She denies having any associated symptoms including headache, lightheadedness, dizziness, palpitations, shortness of breath, cough or congestion, or exp eriencing any numbness/tingling/weakness/swelling in her extremities. Upon arrival to the emergency department patient's blood pressure elevated at 154/106, heart rate 79, respiratory rate 17, temp 98.3 F, and SpO2 of 98% on room air. EKG completed showing normal sinus rhythm at 84 bpm with no noted T wave or ST abnormalities showing no signs of acute ischemia upon personal review and interpretation. Labs completed and reviewed. CBC unremarkable. BMP showing mild non-anion gap metabolic acidosis with chloride of 112, bicarb 19, and anion gap of 7 otherwise normal findings. Magnesium normal at 1.8. Liver enzymes unremarkable. Troponin negative at less than 0.012. Coagulation profile s howing a low PT of 9.8 and an elevated D-dimer of 0.64. CTA chest was completed and was negative for pulmonary emboli but did reveal few subpleural bilateral scattered pulmonary nodules measuring up to 3 mm in size and nonspecific left lateral second rib 1.6 cm lytic lesion with adjacent pleural thickening. Patient was given aspirin 324 mg p.o. x 1 dose along with Toradol 15 mg IVP. Patient being admitted under our services to observation unit with telemetry with consultation to electronics recycler and wood floor refinisher/oncologist. Review of systems: Pertinent positives and negatives as discussed in HPI, a complete review of systems was performed and all other systems are negative. Physical exam: Vital signs reviewed and stable. General: Nontoxic, no distress and appears stated age. Derm: Skin warm and dry, normal coloration for ethnicity. Head: Atraumatic, normocephalic and symmetric. Eyes: EOMs intact, no lid lag, and anicteric sclera Mouth: no lip lesions, mucus membranes moist Cardiovascular: regular rate and rhythm with normal S1S2, no murmur, positive posterior tibial pulses bilaterally, and cap refill < 2 seconds. Lungs: Respirations even, regular, and unlabored on room air. Lungs CTA bi laterally, no rhonchi, no rales, no wheezing, and no accessory muscle usage. Abdominal: soft, nontender to palpation, no guarding, no appreciable organomegaly Ext: ROM intact. No gross muscle atrophy, no edema, no contractures Neuro: Speech clear, face symmetrical and CN II-XII grossly intact with no noted focal neuro deficits Psych: Alert and oriented to person, place, time, and situation. Appropriate and pleasant affect. Assessment and Plan of Care: Chest pain, rule out acute coronary event History of hyperlipidemia Nicotine dependence Hypertension with elevated blood pressure -Cardiology consulted, appreciate recommendations -Telemetry monitoring -Trend troponins -Cardiac diet -Patient started on aspirin 81 mg daily and atorvastatin 40 mg daily. Will trend blood pressures and if they remain elevated may consider starting patient on amlodipine 5 mg daily. -Lipid profile with a.m. labs. -Echocardiogram -Order placed for nicotine patch 21 mg daily and recommend smoking cessation. Incidental finding on CT, pulmonary nodules and lytic bone lesion -CTA chest was completed and was negative for pulmonary emboli but did reveal few subpleural bilateral scattered pulmonary nodules measuring up to 3 mm in size and nonspecific left lateral second rib 1.6 cm lytic lesion with adjacent pleural thickening. -Patient is a high risk patient secondary to 31 year smoking history. Radiologist recommending repeat CT chest in 12 months. -Order placed to hematology/oncology for evaluation secondary to patient's back and chest pain with findings of lytic bone lesion. Data and imaging reviewed: -As stated above in HPI. The patient is admitted with an anticipated less than 2 midnight stay for evaluation of chest pain. CODE STATUS: Full code DVT prophylaxis: Lovenox Anticipated discharge date: 24 to [address]: Home Patient was seen independently by Nurse Practitioner. This document was prepared using [employer] dictation software. Please allow for errors in chief analytics officer while rare they do occur. 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 Cryotherapy of the cervix at age 21. History of Any Multi-Drug Resistant Organisms: None Reported Past Surgical History: Tonsillectomy, Uterine Ablation Additional Past Surgical History / Comment(s): Endometrial ablation approximately 2009. Cryotherapy of cervix age 21. VTP. Past Anesthesia/Blood Transfusion Reactions: No Reported Reaction Past Psychological History: No Psychological Hx Reported Smoking Status: Current every day smoker (Half a pack per day) Past Alcohol Use History: Occasional (5 per week) Additional Past Alcohol Use History / Comment(s): She started smoking at approximately age 17.-SMOKES ABOUT 1/2 PPD Past Drug Use History: None Reported - Past Family History Father Family Medical History: Diabetes Mellitus, Myocardial Infarction ([place]) Mother Family Medical History: Hypertension Medications and Allergies Home Medications Medication Instructions Recorded Confirmed Type Dicyclomine [Bentyl] 20 mg PO QID PRN 11/13/21 01/15/23 History Rosuvastatin [Crestor] 10 mg PO HS 11/13/21 01/15/23 History Allergies Allergy/AdvReac Type Severity Reaction Status Date / Time No Known Allergies Allergy Verified 12/16/23 06:45 Physical Exam Vitals: Vital Signs Temp Pulse Resp BP Pulse Ox 12/16/23 09:28 75 18 166/110 98 12/16/23 06:45 98.3 F 79 17 154/106 98 Intake and Output 12/15/23 12/16/23 12/16/23 22:59 06:59 14:59 Other: Weight 117.934 kg Results CBC & Chem 7: 12/16/23 06:52 12/16/23 06:52 Labs: Abnormal Lab Results - Last 24 Hours (Table) 12/16/23 12/16/23 Range/Units 06:52 06:52 PT 9.8 L (10.0-12.5) sec D-Dimer 0.64 H (<0.60) mg/L FEU Chloride 112 H (98-107) mmol/L Carbon Dioxide 19 L (22-30) mmol/L Creatinine 0.46 L (0.52-1.04) mg/dL Glucose 123 H (74-99) mg/dL
[2023-12-16] MEDS: ATORVASTATIN 40 MG TAB PO SCH (11:04)
[2023-12-16] MEDS: NICOTINE 21MG/24HR PATCH TRANSDERM SCH (11:05)
--- NOTE | 2023-12-16 14:38 | P.CRDCN ---
History of Present Illness History of present illness: HISTORY OF PRESENT ILLNESS: This is a 48-year-old female with a past medical history significant for nicotine dependence and hyperlipidemia. Patient does not follow with a surveillance analyst. We have been asked to see the patient in consultation for chest pain. Patient examined at the bedside in the emergency room. Patient reports that she developed chest pain yesterday. She reports discomfort in her left upper back with palpation. Also reports left chest discomfort upon palpation of her back. She states yesterday the pain was only when she moved and now the pain appears to be more constant. She reports the pain feels like a dull ache. She denied any shortness of breath. Denied any lightheadedness. She reports that she slept on a family member's couch the previous night and thought her symptoms may be related to that. She is a current cigarette smoker and smokes 1 pack/day. She reports occasional binge drinking about once a week and will consume 6-8 beers on a single occasion. She states approximately 10 years ago she had a stress test which was read as positive. She subsequently underwent cardiac catheterization which was negative. She reports a family history of coronary artery disease and states her dad at the age of 61 from heart disease and her brother at the age of 51 from a heart attack. Blood pressures have been elevated since admission with a systolic greater than 140. DIAGNOSTICS: - EKG reveals sinus mechanism with no signs of acute ischemia. - Chest CTA: Negative for pulmonary embolism. Few subpleural bilateral scatt ered pulmonary nodules measuring up to 3 mm. Nonspecific left lateral second rib 1.6 cm lytic lesion with adjacent pleural thickening. - Laboratory data: WBC 6.6. Hemoglobin 13.8. Platelet count 231. D-dimer 0.64. Sodium 138. Potassium 4.9. BUN 16. Creatinine 0.46. Magnesium 1.8. Troponin negative x 2 - Current home cardiac medications include none. REVIEW OF SYSTEMS: At the time of my exam: CONSTITUTIONAL: Denies fever or chills. HEENT: Denies blurred vision, vision changes, or eye pain. Denies hemoptysis CARDIOVASCULAR: Denies chest pain. Denies orthopnea. Denies PND. Denies pal pitations RESPIRATORY: Denies shortness of breath. GASTROINTESTINAL: Denies abdominal pain. Denies nausea or vomiting. HEMATOLOGIC: Denies bleeding disorders. GENITOURINARY: Denies any blood in urine. SKIN: Denies pruitis. Denies rash. PHYSICAL EXAM: VITAL SIGNS: Reviewed. GENERAL: Well-developed in no acute distress. HEENT: Head is normocephalic. Pupils are equal, round. Sclerae anicteric. Mucous membranes of the mouth are moist. Neck supple. No JVD or thyromegaly LUNGS: Respirations even and unlabored. Lungs essentially clear to auscultation bilaterally. HEART: Regular rate and rhythm. S1 and S2 heard. ABDOMEN: Soft. Nondistended. Nontender. EXTREMITIES: Normal range of motion. No clubbing or cyanosis. Peripheral pulses intact. No lower extremity edema NEUROLOGIC: Awake and alert. Oriented x 3. ASSESSMENT: Chest pain, troponin negative x 2 Back pain History of hyperlipidemia, noncompliant with statin therapy outpatient Hypertension Nicotine dependence, patient smokes 1 pack/day Binge alcohol use, patient reports 6-8 beers once weekly Family history of premature coronary artery disease Pulmonary nodules and lytic bone lesion, per CTA PLAN: An acute coronary rate has been ruled out Obtain 2D echo to assess cardiac structure and function Compliance with medications discussed with patient who verbalized understanding Smoking cessation recommended Abstinence from alcohol recommended Patient has been started on aspirin and Lipitor per primary medicine Begin losartan 25 mg daily for blood pressure control N.p.o. at midnight Patient to undergo stress echocardiogram tomorrow Further recommendations pending patient course Nurse practitioner note has been reviewed by physician. Signing provider agrees with the documented findings, assessment, and plan of care documented by CLIENT TECHNICAL SPECIALIST as a scribe. 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 Cryotherapy of the cervix at age 21. History of Any Multi-Drug Resistant Organisms: None Reported Past Surgical History: Tonsillectomy, Uterine Ablation Additional Past Surgical History / Comment(s): Endometrial ablation approximately 2009. Cryotherapy of cervix age 21. VTP. Past Anesthesia/Blood Transfusion Reactions: No Reported Reaction Past Psychological History: No Psychological Hx Reported Smoking Status: Current every day smoker (Half a pack per day) Past Alcohol Use History: Occasional (5 per week) Additional Past Alcohol Use History / Comment(s): She started smoking at approximately age 17.-SMOKES ABOUT 1/2 PPD Past Drug Use History: None Reported - Past Family History Father Family Medical History: Diabetes Mellitus, Myocardial Infarction ([place]) Mother Family Medical History: Hypertension Medications and Allergies Home Medications Medication Instructions Recorded Confirmed Type No Known Home Medications 12/16/23 12/16/23 History Allergies Allergy/AdvReac Type Severity Reaction Status Date / Time No Known Allergies Allergy Verified 12/16/23 11:07 Physical Exam Vitals: Vital Signs Temp Pulse Resp BP Pulse Ox 12/16/23 11:06 68 20 140/95 98 12/16/23 09:28 75 18 166/110 98 12/16/23 06:45 98.3 F 79 17 154/106 98 Intake and Output 12/15/23 12/16/23 12/16/23 22:59 06:59 14:59 Other: Weight 117.934 kg Results 12/16/23 06:52 12/16/23 06:52 Cardiac Enzymes 12/16/23 12/16/23 12/16/23 Range/Units 06:52 06:52 10:23 AST 31 (14-36) U/L Troponin I <0.012 <0.012 (0.000-0.034) ng/mL Coagulation 12/16/23 Range/Units 06:52 PT 9.8 L (10.0-12.5) sec APTT 23.9 (22.0-30.0) sec CBC 12/16/23 Range/Units 06:52 WBC 6.6 (3.8-10.6) k/uL RBC 4.35 (3.80-5.40) m/uL Hgb 13.8 (11.4-16.0) gm/dL Hct 39.3 (34.0-46.0) % Plt Count 231 (150-450) k/uL Comprehensive Metabolic Panel 12/16/23 Range/Units 06:52 Sodium 138 (137-145) mmol/L Potassium 4.9 (3.5-5.1) mmol/L Chloride 112 H (98-107) mmol/L Carbon Dioxide 19 L (22-30) mmol/L BUN 16 (7-17) mg/dL Creatinine 0.46 L (0.52-1.04) mg/dL Glucose 123 H (74-99) mg/dL Calcium 8.7 (8.4-10.2) mg/dL AST 31 (14-36) U/L ALT 21 (4-34) U/L Alkaline Phosphatase 56 (38-126) U/L Total Protein 7.2 (6.3-8.2) g/dL Albumin 4.0 (3.5-5.0) g/dL Current Medications Generic Name Dose Route Start Last Admin Trade Name Freq PRN Reason Stop Dose Admin Acetaminophen 650 mg 12/16/23 10:56 Acetaminophen Tab 325 Mg Tab PO Q6HR PRN Mild Pain or Fever > 100.5 Hydrocodone Bitart/Acetaminophen 1 each 12/16/23 10:56 Hydrocodone/Apap 5-325mg 1 Each Tab PO Q4HR PRN Moderate Pain (Scale 4 to 6) Aspirin 81 mg 12/17/23 09:00 Aspirin 81 Mg PO DAILY [facility] Atorvastatin Calcium 40 mg 12/16/23 10:45 12/16/23 11:04 Atorvastatin 40 Mg Tab PO 40 mg DAILY JUSTIN Administration Enoxaparin Sodium 40 mg 12/17/23 09:00 Enoxaparin 40 Mg/0.4 Ml Syringe SQ DAILY [facility] Nicotine 1 patch 12/16/23 10:45 12/16/23 11:05 Nicotine 21mg/24hr Patch TRANSDERM 1 patch DAILY JUSTIN Administration Nitroglycerin 0.4 mg 12/16/23 09:33 Nitroglycerin Sl Tabs 0.4 Mg Tab SUBLINGUAL Q5M PRN Chest Pain Intake and Output 12/15/23 12/16/23 12/16/23 22:59 06:59 14:59 Other: Weight 117.934 kg 12/16/23 06:52 12/16/23 06:52
[2023-12-16] MEDS: HYDROcodone/APAP 5-325MG 1 EACH TAB PO PRN ×2 (16:00→21:40)
[2023-12-17] MEDS: NICOTINE 21MG/24HR PATCH TRANSDERM SCH (08:33)
[2023-12-17] MEDS: ATORVASTATIN 40 MG TAB PO SCH (08:33)
[2023-12-17] MEDS ORDERED: LOSARTAN 25 MG TAB PO SCH (09:00)
[2023-12-17] MEDS ORDERED: ASPIRIN 81 MG PO SCH (09:00)
[2023-12-17] MEDS ORDERED: ENOXAPARIN 40 MG/0.4 ML SYRINGE SQ SCH (09:00)
[2023-12-17] MEDS ORDERED: ASPIRIN 325 MG TAB PO SCH (09:00)
--- NOTE | 2023-12-17 11:07 | P.PN ---
Subjective HISTORY OF PRESENT ILLNESS: This is a 48-year-old female with a past medical history significant for nicotine dependence and hyperlipidemia. Patient does not follow with a information technology internship. We have been asked to see the patient in consultation for chest pain. Patient examined at the bedside in the emergency room. Patient reports that she developed chest pain yesterday. She reports discomfort in her left upper back with palpation. Also reports left chest discomfort upon palpation of her back. She states yesterday the pain was only when she moved and now the pain appears to be more constant. She reports the pain feels like a dull ache. She denied any shortness of breath. Denied any lightheadedness. She reports that she slept on a family member's couch the previous night and thought her symptoms may be related to that. She is a current cigarette smoker and smokes 1 pack/day. She reports occasional binge drinking about once a week and will consume 6-8 beers on a single occasion. She states approximately 10 years ago she had a stress test which was read as positive. She subsequently underwent cardiac catheterization which was negative. She reports a family history of coronary artery disease and states her dad at the age of 61 from heart disease and her brother at the age of 51 from a heart attack. Blood pressures have been elevated since admission with a systolic greater than 140. DIAGNOSTICS: - EKG reveals sinus mechanism with no signs of acute ischemia. - Chest CTA: Negative for pulmonary embolism. Few subpleural bilateral scattered pulmonary nodules measuring up to 3 mm. Nonspecific left lateral second rib 1.6 cm lytic lesion with adjacent pleural thickening. - Laboratory data: WBC 6.6. Hemoglobin 13.8. Platelet count 231. D-dimer 0.64. Sodium 138. Potassium 4.9. BUN 16. Creatinine 0.46. Magnesium 1.8. Troponin negative x 2 - Current home cardiac medications include none. 12/17/2023 Patient examined this morning in the stress lab. She continues to report upper back pain this morning. Patient denies chest pain or pressure. She denies shortness of breath. Blood pressure this morning 126/82. 2D echo is currently pending. PHYSICAL EXAM: VITAL SIGNS: Reviewed. GENERAL: Well-developed in no acute distress. HEENT: Head is normocephalic. Pupils are equal, round. Sclerae anicteric. Mucous membranes of the mouth are moist. Neck supple. No JVD or thyromegaly LUNGS: Respirations even and unlabored. Lungs essentially clear to auscultation bilaterally. HEART: Regular rate and rhythm. S1 and S2 heard. ABDOMEN: Soft. Nondistended. Nontender. EXTREMITIES: Normal range of motion. No clubbing or cyanosis. Peripheral pulses intact. No lower extremity edema NEUROLOGIC: Awake and alert. Oriented x 3. ASSESSMENT: Chest pain, troponin negative x 2 Back pain History of hyperlipidemia, noncompliant with statin therapy outpatient Hypertension Nicotine dependence, patient smokes 1 pack/day Binge alcohol use, patient reports 6-8 beers once weekly Family history of premature coronary artery disease Pulmonary nodules and lytic bone lesion, per CTA PLAN: An acute coronary rate has been ruled out Obtain 2D echo to assess cardiac structure and function Compliance with medications discussed with patient who verbalized understanding Smoking cessation recommended Abstinence from alcohol recommended Patient to undergo stress echocardiogram today If negative, patient will be discharged home today from a cardiac standpoint Nurse practitioner note has been reviewed by physician. Signing provider agrees with the documented findings, assessment, and plan of care documented by EMPLOYEE WELLNESS/FITNESS COORDINATOR as a scribe. Objective - Vital Signs Vital signs: Vital Signs Temp 97.7 F 12/17/23 07:00 Pulse 83 12/17/23 07:00 Resp 20 12/17/23 07:00 BP 126/82 12/17/23 07:00 Pulse Ox 98 12/17/23 07:00 FiO2 Intake & Output 12/16/23 12/17/23 12/17/23 18:59 06:59 18:59 Weight 117.934 kg Other: Voiding Method Toilet # Voids 1 - Labs CBC & Chem 7: 12/16/23 06:52 12/16/23 06:52
[2023-12-17 11:45] LABS: Chol/HDL Ratio 5.76 Ratio; LDL Cholesterol,Calculated 136.2 mg/dL (0.0-131.0)
--- NOTE | 2023-12-17 12:03 | CA ---
Stress Echo Report Colette Estrada Age: 48 Gender: F : 1975 Exam Date: 12/17/2023 11:05 Exam Location: [facility] Stress Ht (in): 65 Wt (lb): 260 Ordering Physician: My Wong Referring Physician: [id number] Philip Cat Breeder: ALONSO Technologist Procedure CPT: Indication: CP ICD-9 Codes: Rhythm: Patient History: CHEST PAIN, PULMONARY NIODULES Cardiac Medications: SEE CHART Medications in past 24 hours: Contrast: N/A Stress Results Protocol: Alonso Total dose(mL): 0 Exercise Duration (min:sec): 6:[address] Depression (mm): Angina Score: Chavez Score: METS: 7.3 Resting HR: 89 Resting BP: 133 / 92 Peak HR: 164 Peak BP: 191 / 65 Max Predicted HR: 171 96 % Max Predicted HR Target HR: 145 Double Product: [id number] Stress Summary: BP Response: Reason for Termination: MAX EXERTION/TARGET HR Cardiac Symptoms: NO SYMPTOMS ECG Analysis Resting ECG: Normal sinus rhythm, normal axis, heart rate 79 bpm Stress ECG: No significant ST-T wave changes diagnostic for ischemia by ST segment analysis Arrhythmia: No arrhythmias or ectopic beats Echo Analysis Resting Echo: Normal global and segmental systolic function. No resting regional wall motion abnormality Peak Echo Analysis: Normal augmentation of global and segmental systolic function. No stress-induced regional wall motion abnormality MEASUREMENTS (Male/Female) Normal Values CONCLUSIONS Fair exercise tolerance for patient's age achieving only 7.3 METS Normal hemodynamic and clinical response to exercise Nonischemic ECG response to exercise Nonischemic echo response to treadmill exercise Overall normal treadmill echo stress test Dr David Mustafa (Electronically Signed) Final Date: 17 December 2023 12:02
--- NOTE | 2023-12-17 12:07 | CA ---
Transthoracic Echo Report Name: Colette Estrada Age: 48 Gender: F : 1975 Exam Date: 12/17/2023 10:22 Exam Location: [facility] Echo Ht (in): 66 Wt (lb): 260 Ordering Physician: Tung Sherwood Attending/Referring Phys: [id number], Presley Control Room Tender Gabriella Mcclain RDCS Procedure CPT: Indications: Chest Pain Cardiac Hx: Technical Quality: Fair Contrast 1: Total Dose (mL): Contrast 2: Total Dose (mL): MEASUREMENTS (Male / Female) Normal Values 2D ECHO LV Diastolic Diameter PLAX 4.2 cm 4.2 - 5.9 / 3.9 - 5.3 cm LV Systolic Diameter PLAX 2.7 cm IVS Diastolic Thickness 1.2 cm 0.6 - 1.0 / 0.6 - 0.9 cm LVPW Diastolic Thickness 1.4 cm 0.6 - 1.0 / 0.6 - 0.9 cm LV Relative Wall Thickness 0.6 RV Internal Dim ED PLAX 3.2 cm LA Volume 40.7 cm??? 18 - 58 / 22 - 52 cm??? LA Volume Index 16.9 cm???/m??? 16 - 28 cm???/m??? M-MODE Aortic Root Diameter MM 3.5 cm LA Systolic Diameter MM 3.7 cm LA Ao Ratio MM 1.1 AV Cusp Separation MM 2.1 cm DOPPLER AV Peak Velocity 121.8 cm/s AV Peak Gradient 5.9 mmHg AV Mean Velocity 86.1 cm/s AV Mean Gradient 3.2 mmHg AV Velocity Time Integral 25.6 cm LVOT Peak Velocity 94.8 cm/s LVOT Peak Gradient 3.6 mmHg LVOT Velocity Time Integral 22.8 cm MV Area PHT 3.2 cm??? Mitral E Point Velocity 89.1 cm/s Mitral A Point Velocity 86.4 cm/s Mitral E to A Ratio 1.0 MV Deceleration Time 240.4 ms MV E' Velocity 6.5 cm/s Mitral E to MV E' Ratio 13.8 TR Peak Velocity 191.2 cm/s TR Peak Gradient 14.6 mmHg Right Ventricular Systolic Press 19.6 mmHg FINDINGS Left Ventricle Mildly increased left ventricular wall thickness. Left ventricular cavity size normal. Normal left ventricular systolic function with no obvious regional wall motion abnormalities. Left ventricular ejection fraction is estimated at 55-60 %. Right Ventricle Normal right ventricular size and function. Right ventricular systolic pressure within normal limits. Right Atrium Normal right atrial size. Left Atrium Normal left atrial size. Mitral Valve Structurally normal mitral valve. No mitral stenosis, regurgitation or prolapse. Aortic Valve Trileaflet aortic valve. No aortic valve stenosis or regurgitation. Tricuspid Valve Structurally normal tricuspid valve. Mild tricuspid regurgitation. Pulmonic Valve Structurally normal pulmonic valve. Pericardium No pericardial effusion. Aorta Normal size aortic root and proximal ascending aorta. CONCLUSIONS Left ventricular ejection fraction is estimated at 55-60 %. Normal left ventricular systolic function with no obvious regional wall motion abnormalities. Mildly increased left ventricular wall thickness. No significant valvular dysfunction No significant chamber size abnormality Previewed by: Dr David Mustafa (Electronically Signed) Final Date: 17 December 2023 12:06
--- NOTE | 2023-12-17 12:49 | P.DS ---
Providers Date of admission: 12/16/23 09:27 Expected date of discharge: 12/17/23 Attending physician: Amalia Gamino DO Consults: 12/16/23 09:43 Consult Physician Routine Consulting Provider: Bere Banks Consult Reason/Comments: multiple pulmonary nodules and lytic bone lesion on rib Do you want consulting provider notified?: Yes Primary care physician: Tung Gillis Hospital Course: Discharge Diagnosis: Costochondritis Dyslipidemia Hypertension Nicotine dependence Pulmonary nodules and lytic bone lesion, per CTA Hospital Course: 48-year-old female with history of nicotine dependence, dyslipidemia presenting with chest pain. On arrival, patient was hypertensive, EKG showed normal sinus rhythm, labs showed mild non-anion gap metabolic acidosis, troponin negative x 3, D-dimer slightly elevated. CTA chest showed no PE, few subpleural bilateral scattered pulmonary nodules measuring up to 3 mm in size, nonspecific left lateral second rib 1.6 cm lytic lesion with adjacent pleural thickening. Cardiology was consulted. Echocardiogram showed LVEF of 55 to 60%. Stress echo was negative for any ischemic changes. Patient being discharged home. However, she does need follow-up with PCP, cardiology and possibly pulmonology to further evaluate pulmonary nodules and left lateral second rib lytic lesion. She may also need further oncology outpatient follow-up. Patient seen and examined at bedside. Vital signs reviewed and stable. General: Nontoxic, no distress, appears at stated age Derm: Warm, dry Head: Atraumatic, normocephalic, symmetric Eyes: EOMI, no lid lag, anicteric sclera Mouth: No lip lesion, mucus membranes moist Cardiovascular: S1S2 reg, no murmur Lungs: CTA bilateral, no rhonchi, no rales, no accessory muscle use Abdominal: Soft, nontender to palpation, no guarding, no appreciable organomegaly Ext: No gross muscle atrophy, no edema, no contractures Neuro: CN II-XI grossly intact, no focal neuro deficits Psych: Alert, oriented, appropriate affect A total of 33 minutes of time were spent preparing this complex discharge summary. Patient was discharged on 12/17/23 at 1246. Patient Condition at Discharge: Stable Plan - Discharge Summary Discharge Rx Participant: Yes New Discharge Prescriptions: New Losartan [Cozaar] 25 mg PO DAILY #90 tab Atorvastatin [Lipitor] 40 mg PO DAILY #90 tab Discharge Medication List Atorvastatin [Lipitor] 40 mg PO DAILY #90 tab 12/17/23 [Rx] Losartan [Cozaar] 25 mg PO DAILY #90 tab 12/17/23 [Rx] Follow up Appointment(s)/Referral(s): David Mustafa MD [Medical Doctor] - 1 Week Tung Gillis DO [Primary Care Provider] - 1-2 days Kole Zaragoza DO [Doctor of Osteopathic Medicine] - 1 Week Patient Instructions/Handouts: Noncardiac Chest Pain (DC), How to Stop Smoking (DC), Pulmonary Nodules (DC) Activity/Diet/Wound Care/Special Instructions: Please see cardiology and your PCP. Also see pulmonology, you may need further work up with regards to pulmonary nodules noted on Chest CT. Or may need to be monitored closely. Discharge Disposition: HOME SELF-CARE
[2023-12-17] MEDS ORDERED: IOPAMIDOL CONTRAST (ORAL USE) VIAL PO PRN (13:50)
[2023-12-17 14:21] VITALS: BP 122/83; PULSE 87; RESP 15; TEMP 98.3
[2023-12-17] MEDS: HYDROcodone/APAP 5-325MG 1 EACH TAB PO PRN (14:33)
== END 2023-12-17 15:28 | disposition home or self-care (01) ==
LOC: EC 06:10 → 6NMEDSUR 09:27
PROVIDERS: ADMIT Internal Medicine; ATTEND Internal Medicine
DX: M94.0 Chondrocostal junction syndrome [Tietze] (principal); I10 Essential (primary) hypertension; E87.20 Acidosis, unspecified; E78.5 Hyperlipidemia, unspecified; R91.8 Other nonspecific abnormal finding of lung field; M89.9 Disorder of bone, unspecified; R79.89 Other specified abnormal findings of blood chemistry; Z91.148 Patient's other noncompliance with medication regimen for other reason; F17.210 Nicotine dependence, cigarettes, uncomplicated; Z79.899 Other long term (current) drug therapy; Z82.49 Family history of ischemic heart disease and other diseases of the circulatory system
CPT/HCPCS: 96372; 96374; 99285; 36415; 93005; 93306; 93351; 85379; 80061; 80053; 83735; 84484; 85025; 85610; 85730; 71275; G0378 ×2; S4990 ×2; J1650; J1885; Q9967

== ENCOUNTER → 2024-02-12 | Outpatient (CLI) | payer MEDICAID ==
--- NOTE | 2024-02-15 22:48 | PE ---
EXAMINATION TYPE: PET CT fusion skull to thigh DATE OF EXAM: 02/12/2024 COMPARISON: CTA chest 12/16/2023 Prior PET/CT: No prior PET/CT at this location HISTORY: Thoracic neoplasm TECHNIQUE: Following the intravenous administration of 8.26 mCi of F-18 FDG, whole body images are p erformed from the skull base to the midthigh. Images are reviewed on the computer in the coronal, ax ial, and sagittal planes. Reconstructed rotating images are created on independent workstation and r eviewed on the computer. A localization and attenuation correction CT is performed in conjunction w ith the PET scan. DLP: 1055.76 mGycm SCAN: Initial Blood glucose: 105 mg/dL Average Mediastinum SUV: 2.47 Average Liver SUV: 3.46 FINDINGS: NECK: Appears to be some punctate posterior mid left thyroid lobe uptake with an SUV of 4.95. Correl ation with thyroid ultrasound is recommended. THORAX: No abnormal uptake within the thoracic cavity. Some uptake is present within an anterior late ral left rib. ABDOMEN: No abnormal uptake PELVIS: No abnormal uptake OSSEOUS STRUCTURES: There is uptake within the anterior lateral left rib, image 81, 79.71 suspicious for metastatic disease. LOCALIZATION CT: There is a pathologic fracture at the previous lytic lesion in the anterolateral sec ond rib. COMPARISON: No new findings IMPRESSION: 1. Focal uptake within the suspected metastatic lesion anterior lateral left second rib. Pathologic f racture is present at this level at this time. 2. Punctate area of mild increased uptake within the posterior left mid thyroid lobe is nonspecific. Additional workup however with ultrasound is recommended. 3. No additional areas suspicious for primary or metastatic neoplasm.
== END | disposition home or self-care (01) ==
LOC: RADPETMAIN 11:16
PROVIDERS: ATTEND Family Medicine
DX: C76.1 Malignant neoplasm of thorax (principal)
CPT/HCPCS: 78815; A9552

== ENCOUNTER → 2024-02-20 | Outpatient (CLI) | payer MEDICAID ==
--- NOTE | 2024-02-20 16:34 | US ---
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 1.6 X 1.4 x 1.5 cm, lower mid, solid or almost completely solid, hypoechoic nodule, which is wid er than tall, with smooth margins, without echogenic foci. Prior size: no previous ISTHMUS: # of nodules measured in the isthmus: 0 Bilateral neck scanned, no evidence of lymphadenopathy. IMPRESSION: Moderately Suspicious: FNA if ? 1.5 cm; Follow if ? 1 cm at 1, 2, 3, and 5 y 2017 ACR TI-RADS LEVEL: TR4 *Highest TI-RADS level nodule reported
== END | disposition home or self-care (01) ==
LOC: RADUSWWP 15:23
PROVIDERS: ATTEND Family Medicine
DX: E04.1 Nontoxic single thyroid nodule (principal)
CPT/HCPCS: 76536

== ENCOUNTER → 2024-03-03 | Outpatient (CLI) | payer MEDICAID ==
[2024-03-03 08:22] VITALS: BP 124/85; PULSE 96; RESP 17; TEMP 98.3
--- NOTE | 2024-03-03 08:28 | P.HPOB ---
History of Present Illness H&P Date: 03/03/24 Chief Complaint: The patient is here for her routine gynecologic exam and ma mmogram. This is a 48-year-old -0-1-2 with an LMP of January 2023. The patient is status post endometrial ablation in 2009. After the ablation she has had minimal pink spotting 1 day a month. This continued until about January 2023. She states she has not had any bleeding since then. She has had some mild hot flashes at night, but they are not bad. She is without gynecologic complaints. She is currently undergoing a workup for a left rib lesion which was found on CT scan after she presented with chest pain last month. Imaging studies including a PET scan showed a left rib lesion and a thyroid lesion. The thyroid lesion was biopsied earlier this week and the rib lesion will be biopsied in the near future. She is undergoing the workup through [facility]. Review of Systems The patient's weight has been stable over the last year. She denies respiratory, cardiac, or G.I. problems. 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 Cryotherapy of the cervix at age 21. History of Any Multi-Drug Resistant Organisms: None Reported Past Surgical History: Heart Catheterization, Tonsillectomy, Uterine Ablation Additional Past Surgical History / Comment(s): Thyroid biopsy. Endometrial ablation approximately 2009. Cryotherapy of cervix age 21. VTP. heart cath no stent approx 10years ago. Colonoscopy 2020(next after 5yr) Past Anesthesia/Blood Transfusion Reactions: No Reported Reaction Past Psychological History: No Psychological Hx Reported Smoking Status: Current every day smoker (About a half a pack of cigarettes per day.) Past Alcohol Use History: Occasional (6 drinks per week.) Additional Past Alcohol Use History / Comment(s): She started smoking at approximately age 17.-SMOKES ABOUT 1/2 PPD Past Drug Use History: None Reported Additional History: She has been since 2005. 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 - Past Family History Father Family Medical History: AFIB, Diabetes Mellitus, Myocardial Infarction (NC) Mother Family Medical History: Hyperlipidemia, Hypertension Brother(s) Family Medical History: AFIB, Coronary Artery Disease (CAD) Medications and Allergies Home Medications Medication Instructions Recorded Confirmed Type Atorvastatin [Lipitor] 40 mg PO DAILY #90 tab 12/17/23 03/03/24 Rx Allergies Allergy/AdvReac Type Severity Reaction Status Date / Time No Known Allergies Allergy Verified 03/03/24 07:56 Exam Vital Signs Temp Pulse Resp BP Pulse Ox 03/03/24 07:57 98.3 F 96 17 124/85 97 Intake and Output 03/02/24 03/03/24 03/03/24 22:59 06:59 14:59 Other: Weight 122.016 kg Height 5 feet 4 inches, weight 269 pounds, BMI 46.2. This is a well-developed well-nourished heavyset white female who is alert and oriented times 3 in no acute distress. HEENT: Within normal limits. NECK: Supple without mass or thyromegaly. CHEST AND LUNGS: Clear to auscultation. HEART: Regular rate and rhythm. BREASTS: Are without mass or discharge. AXILLARY EXAM: Negative for adenopathy. BACK: Negative for CVA tenderness. ABDOMEN: Soft, obese, nontender, without palpable masses. PELVIC EXAM: Normal external genitalia. Cervix and vagina appear normal. There is no unusual discharge. There is no evidence of prolapse. The uterus is midposition, nongravid size and nontender. There are no palpable adnexal masses or tenderness. Bimanual examination is somewhat limited secondary to her size. RECTAL EXAM: negative for mass or tenderness and is negative for occult blood. EXTREMITIES: Nontender. IMPRESSION: 1. 48-year-old perimenopausal female status post endometrial ablation with about 1 year of amenorrhea and mild vasomotor symptoms. 2. Normal gynecologic exam. PLAN: 1. Pap smear was deferred since she had a negative Pap smear cotest on 01/15/2023. 2. Self breast awareness was discussed with the patient. We have also discussed symptoms associated with inflammatory breast cancer. 3. Screening mammogram will be done today. 4. Osteoporosis prevention was discussed. I have stressed the importance of adequate calcium, vitamin D and regular exercise. Recommended amounts of calcium and vitamin D were also discussed. 5. I have recommended that she try to quit smoking. We have discussed many reasons why this is important. 6. She will complete her workup for her left rib lesion and thyroid lesion. This is being done through [facility]. 7. She was advised to return in one year for her annual well woman exam.
--- NOTE | 2024-03-04 19:08 | MM ---
Reason for Exam: Screening (asymptomatic). Last mammogram was performed 1 year(s) and 1 month(s) ago. Patient History: Menarche at age 11. First Full-Term at age 29. Late child-bearing (after 29). Perimenopausal. Last menstrual period: Risk Values: Tila 5 year model risk: 1.3%. NCI Lifetime model risk: 12.3%. Prior Study Comparison: 09/12/2020 Bilateral Screening Mammogram, [facility]. 11/13/2021 Bilateral Screening Mammogram, [facility]. 01/15/2023 Bilateral MG 3D screening mammo w/cad, [facility]. Tissue Density: There are scattered areas of fibroglandular density. Findings: Analyzed By CAD. There is no suspicious group of microcalcifications or new suspicious mass in either breast. Overall Assessment: Negative, BI-RAD 1 Management: Screening Mammogram of both breasts in 1 year. . Patient should continue monthly self-breast exams. A clinical breast exam by your physician is recommended on an annual basis. This exam should not preclude additional follow-up of suspicious palpable abnormalities. Note on Tila scores and lifetime risk: 1. A Tila score greater than 3% is considered moderate risk. If this is the case, consider specialist referral to assess eligibility for a risk reducing agent. 2. If overall lifetime risk for the development of breast cancer is 20% or higher, the patient may qualify for future screening with alternating mammogram and breast MRI. Electronically signed and approved by: Corey Gong M.D. Radiologist
== END ==
LOC: WWCWWP 07:43
PROVIDERS: ATTEND Obstetrics & Gynecology
DX: Z01.419 Encounter for gynecological examination (general) (routine) without abnormal findings (principal); Z12.31 Encounter for screening mammogram for malignant neoplasm of breast; N91.2 Amenorrhea, unspecified; F17.210 Nicotine dependence, cigarettes, uncomplicated; Z78.0 Asymptomatic menopausal state; Z98.890 Other specified postprocedural states
CPT/HCPCS: 77063; 77067